=== PATIENT | male | born 1950 | race Caucasian/White ===

== ENCOUNTER 2024-11-18 14:39 | Emergency (ER) | payer MEDICARE, BC ==
[2024-11-18] MEDS ORDERED: Sodium Chloride 0.9% 10 ML Syringe FLUSH PRN (14:57)
[2024-11-18 15:06] LABS: BASOPHILS PERCENT AUTO 0.2 % (0.0-1.0); EOSINOPHILS PERCENT AUTO 0.1 % (1.0-3.0); LYMPHOCYTES PERCENT AUTO 2.9 % (20.5-50.1); MONOCYTES PERCENT AUTO 8.0 % (2-8); NEUTROPHILS PERCENT AUTO 88.8 % (42.2-75.2); PLATELET COUNT,PLT 127 10^3/uL (150-450); RED BLOOD CELL COUNT 5.21 10^6/uL (4.6-6.2); WHITE BLOOD CELL COUNT,WBC 13.6 10^3/uL (5.0-10.0)
[2024-11-18 15:17] LABS: A/G RATIO 1.6; ALANINE AMINOTRANSFERASE,ALT 32 U/L (16-63); ASPARTATE AMNIOTRANSFERASE,AST 29 U/L (15-37); BILIRUBIN TOTAL 1.1 mg/dL (0.2-1.0); BLOOD UREA NITROGEN,BUN 21 mg/dL (7-18); CARBON DIOXIDE,CO2 25 mmol/L (21-32); CHLORIDE,CL 99 mmol/L (98-107); CREATININE 1.48 mg/dL (0.70-1.30); GLUCOSE RANDOM 130 mg/dL (70-99); POTASSIUM,K 4.3 mmol/L (3.5-5.1); PROTEIN TOTAL,TP 7.2 g/dL (6.4-8.2); SODIUM,NA 134 mmol/L (136-145)
[2024-11-18 15:24] LABS: INR 1.1 (0.9-1.2); PTT,PARTIAL THROMBOPLSTIN TIME 23.6 SEC (22.0-34.0)
[2024-11-18 15:25] LABS: ESTIMATED GFR 49 mL/min (>=60); LACTIC ACID 3.4 mmol/L (0.4-2.0)
[2024-11-18 15:26] LABS: B-TYPE NATRIURETIC PEPTIDE,BNP 32 pg/ml (0-100)
[2024-11-18 15:29] LABS: D-DIMER QUANTITATIVE 990.0 ng/mL (0-400)
[2024-11-18 16:10] LABS: APPEARANCE,URINE CLEAR (CLEAR); GLUCOSE,URINE NEGATIVE (NEGATIVE); OCCULT BLOOD,URINE TRACE-INTACT (NEGATIVE)
[2024-11-18 16:35] LABS: EPITHELIAL CELLS,URINE RARE /HPF (NOT SEEN)
[2024-11-18] MEDS: Iopamidol 755 Mg/ML 100 ML Bottle IVPUSH ONE (17:10)
== END 2024-11-18 19:19 ==
LOC: DL.ED 14:39
DX: K20.90 Esophagitis, unspecified without bleeding (principal); D72.829 Elevated white blood cell count, unspecified
CPT/HCPCS: 36415; 70450; 71045; 71275; 74176; 80053; 81001; 82947; 83605; 83690; 83880; 84145; 84484; 85025; 85379; 85610; 85730; 87040; 87428; 93005; 96361; 96374; 99285; A9270; G0103; J0696; J7030; Q9967